=== PATIENT | female | born 1995 | race Caucasian/White ===

== ENCOUNTER → 2016-11-23 | Outpatient (REF) | payer OTHER | LOC: M SFHCLERA 14:46 | PROVIDERS: ATTEND Nurse Practitioner Family | DX: N94.9 Unspecified condition associated with female genital organs and menstrual cycle (principal) ==

== ENCOUNTER → 2017-02-27 | Outpatient (REF) | payer OTHER ==
[2017-02-27 21:30] LABS: ANION GAP 6 MEQ/L (8-16); BLOOD UREA NITROGEN 14 MG/DL (7-18); CALCIUM LEVEL 8.9 MG/DL (8.5-10.1); CARBON DIOXIDE LEVEL 30 MEQ/L (21-32); CHLORIDE LEVEL 104 MEQ/L (98-107); CREATININE FOR GFR 0.66 MG/DL (0.55-1.02); GLOMERULAR FILTRATION RATE > 60.0 (>60); GLUCOSE, FASTING 96 MG/DL (70-105); POTASSIUM SERUM 4.1 MEQ/L (3.5-5.1); SODIUM LEVEL 140 MEQ/L (136-145)
[2017-02-27 21:39] LABS: FREE T4 1.09 NG/DL (0.76-1.46)
== END ==
LOC: M SFHCLERA 15:42
PROVIDERS: ATTEND Family Medicine
DX: R10.9 Unspecified abdominal pain (principal); Z13.29 Encounter for screening for other suspected endocrine disorder

== ENCOUNTER → 2017-04-03 | Outpatient (REF) | payer OTHER ==
[2017-04-03 20:29] LABS: BASO % 0.3 % (0.0-1.0); EOS # 0.1 K/mm3 (0.0-0.50); EOS % 0.8 % (0.0-3.0); LARGE UNSTAINED CELL # 0.1 K/mm3 (0.0-0.4); LARGE UNSTAINED CELL % 1.4 % (0.0-4.0); LYMPH # 2.8 K/mm3 (1.5-6.5); LYMPH % 30.9 % (24.0-44.0); MEAN CORPUSCULAR HEMOGLOBIN 28.8 pg (27.0-33.0); MEAN CORPUSCULAR HGB CONC 33.8 g/dl (32.0-36.5); MEAN CORPUSCULAR VOLUME 85.2 fl (80.0-96.0); MONO # 0.5 K/mm3 (0.0-0.8); MONO % 5.4 % (0.0-5.0); NEUTROPHILS # 5.2 K/mm3 (1.8-7.7); NEUTROPHILS % 61.2 % (36.0-66.0); PLATELET COUNT, AUTOMATED 373 k/mm3 (150-450); RED CELL DISTRIBUTION WIDTH 13.2 % (11.5-14.5); WHITE BLOOD COUNT 8.5 K/mm3 (4.0-10.0)
[2017-04-06 00:06] LABS: Lyme Disease IgG/IgM Antibodie <0.91 ISR (0.00-0.90); Lyme Disease IgM Ab Quantitati <0.80 index (0.00-0.79)
== END ==
LOC: M SFHCLERA 17:36
PROVIDERS: ATTEND Nurse Practitioner Family
DX: R23.8 Other skin changes (principal); H53.9 Unspecified visual disturbance

== ENCOUNTER 2017-05-17 12:42 | Emergency (ER) | payer OTHER ==
[2017-05-17] MEDS ORDERED: IBUP-1114 PO (12:52)
[2017-05-17] MEDS ORDERED: BACT800T5 PO (12:52)
--- NOTE | 2017-05-17 14:21 | REP ---
Clinical: Edema and pain; rule out abscess. Technique: Real time directed mann scale ultrasound examination using linear high frequency transducer. Findings: Directed ultrasound examination of the right medial thigh at the site of maximal induration demonstrates subcutaneous edema with a heterogeneous fluid collection measuring 1.1 x 1.3 x 1.4 cm with suspected fistulous extension to the skin. Impression: Small heterogeneous fluid collection compatible with forming abscess. Signed by Dmitry Hayward MD 05/17/2017 02:13 P
[2017-05-17 14:46] VITALS: BP 134/82
[2017-09-17] MEDS ORDERED: NORC1TAB4 PO (12:09)
[2017-09-17] MEDS ORDERED: TYLE325T5 PO (12:09)
[2017-09-17] MEDS ORDERED: PROCAER4 PR (14:44)
== END 2017-05-17 14:51 | disposition home or self-care (01) ==
LOC: EEVIPCON 12:42 → M ED 12:42
DX: L02.415 Cutaneous abscess of right lower limb (principal)

== ENCOUNTER → 2017-09-30 | Outpatient (REF) | payer OTHER ==
[~2017-09-30] MED LIST: BACT800T5 PO; IBUP-1114 PO; NORC1TAB4 PO; PROCAER4 PR; TYLE325T5 PO
== END ==
LOC: M SFHCLERA 13:32
PROVIDERS: ATTEND Family Medicine
DX: N89.8 Other specified noninflammatory disorders of vagina (principal)

== ENCOUNTER → 2017-11-16 | Outpatient (REF) | payer OTHER | LOC: M SFHCLERA 14:18 | DX: N89.8 Other specified noninflammatory disorders of vagina (principal) ==

== ENCOUNTER → 2018-03-12 | Outpatient (CLI) | payer OTHER | LOC: M RAD 15:04 | DX: T83.39XA Other mechanical complication of intrauterine contraceptive device, initial encounter (principal) ==

== ENCOUNTER → 2018-03-13 | Outpatient (REF) | payer OTHER | LOC: M SFHCLERA 19:58 | DX: J02.9 Acute pharyngitis, unspecified (principal) ==

== ENCOUNTER → 2018-05-30 | Outpatient (REF) | payer OTHER | LOC: M SFHCLERA 17:07 | DX: R30.0 Dysuria (principal) ==

== ENCOUNTER → 2018-06-25 | Outpatient (REF) | payer OTHER | LOC: M SFHCLERA 18:21 | DX: R30.0 Dysuria (principal) ==

== ENCOUNTER → 2019-04-13 | Outpatient (REF) | payer OTHER ==
[~2019-04-13] MED LIST changes: -NORC1TAB4 PO; +NORC1TAB7 PO; +PRENTAB9 PO; +PROC1AER16 PR; -PROCAER4 PR
== END ==
LOC: M LAB REF 16:58
PROVIDERS: ATTEND Specialist
DX: Z34.83 Encounter for supervision of other normal pregnancy, third trimester (principal)

== ENCOUNTER 2019-04-20 07:46 | Outpatient (CLI) | payer OTHER ==
[~2019-04-20] VITALS: Ht 157.5 cm; Wt 96.4 kg
[~2019-04-20 07:46] MED LIST changes: -PRENTAB9 PO
[2019-04-20 08:15] VITALS: BP 110/72
[2019-04-20] MEDS ORDERED: PRENTAB9 PO (08:21)
[2019-04-20 09:35] VITALS: BP 106/57
[2019-04-20 10:41] VITALS: BP 111/56
--- NOTE | 2019-04-20 10:59 | IPN ---
DATE: 04/20/2019 23-year-old 2, para 1 female at 37-0/7 weeks gestation who presents for attempt at external cephalic version due to persistent breech presentation. The patient has had one prior section due to breech presentation, 2015. course is significant for a ventricular septal defect (VSD) noted prior to her care in [place]. She has seen the [facility] for a consult. The VSD is apparently small, however plan is to deliver one way or another at the [facility] in [place]. Patient has seen Dr. Garibay in consultation. Informed consent for ECV obtained. Ultrasound guidance was used throughout the procedure. With steady pressure on the vertex in the maternal right upper quadrant as well as lifting up on the lower half of the baby in the pubic area, a turn was attempted. Initial attempt was not successful. A second attempt was made and this time the baby did convert to a vertex presentation. heart tones were stable throughout. A category 1 tracing was noted before attempting the procedure as well as after the procedure. The patient tolerated the procedure well. ASSESSMENT: 23-year-old 2, para 1 at 37-0/7 weeks gestation with breech presentation, history of prior section times one. PLAN: Successful external cephalic version as noted above. Patient will continue with scheduled visits at the Center in [place] with plans to ultimately deliver in [place] if feasible.
[2019-04-20 11:36] VITALS: BP 90/57
== END 2019-04-20 11:40 | disposition home or self-care (01) ==
LOC: M LDO 07:46
PROVIDERS: ATTEND Specialist
DX: O32.1XX0 Maternal care for breech presentation, not applicable or unspecified (principal); Z3A.37 37 weeks gestation of pregnancy
CPT/HCPCS: 59025; 59412; 76815; G0378; G0463

== ENCOUNTER → 2019-09-24 | Outpatient (REF) | payer OTHER ==
[~2019-09-24] MED LIST changes: +PRENTAB9 PO
[2019-09-24 20:44] LABS: CHLAMYDIA DNA AMPLIFICATION NEGATIVE (NEGATIVE); GC DNA AMPLIFICATION NEGATIVE (NEGATIVE)
== END ==
LOC: M LAB REF 17:09
PROVIDERS: ATTEND Advanced Practice Midwife
DX: Z11.3 Encounter for screening for infections with a predominantly sexual mode of transmission (principal)

== ENCOUNTER → 2019-12-17 | Outpatient (REF) | payer OTHER ==
[2019-12-17 21:36] LABS: CHLAMYDIA DNA AMPLIFICATION NEGATIVE (NEGATIVE); GC DNA AMPLIFICATION NEGATIVE (NEGATIVE)
== END ==
LOC: M SFHCWAGY 16:45
PROVIDERS: ATTEND Advanced Practice Midwife
DX: Z30.430 Encounter for insertion of intrauterine contraceptive device (principal)

== ENCOUNTER → 2020-01-08 | Outpatient (REF) | payer OTHER | LOC: M SFHCLERA 15:59 | PROVIDERS: ATTEND Nurse Practitioner Family | DX: R30.0 Dysuria (principal) | CPT/HCPCS: 81002; 81025; 87086; G0463 ==

== ENCOUNTER → 2020-04-10 | Outpatient (REF) | payer OTHER | LOC: M SFHCLERA 09:35 | PROVIDERS: ATTEND Physician Assistant | DX: R30.0 Dysuria (principal) ==